=== PATIENT | male | born 1970 | race African-American/Black ===

== ENCOUNTER 2021-03-01 05:05 | Day surgery (SDC) | payer OTHER ==
[~2021-03-01] VITALS: Ht 175.3 cm; Wt 86.4 kg
[2021-03-01] MEDS ORDERED: ZOCOR20 MG PO (06:34)
[2021-03-01] MEDS ORDERED: METOPROLOL TART50 MG PO (06:34)
[2021-03-01] MEDS ORDERED: PAMELOR75 MG PO (06:34)
[2021-03-01 06:58] VITALS: Ht 175.3 cm; Wt 86.4 kg
[2021-03-01 07:04] LABS: ALBUMIN 3.9 g/dL (3.4-5.0); ALKALINE PHOSPHATASE 102 U/L (30-120); ALT (SGPT) 32 U/L (10-68); BILIRUBIN - TOTAL 0.43 mg/dL (0.2-1.3); CALC OSMOLALITY 277 mosm/kg (275-300); CALCIUM 8.9 mg/dL (8.5-10.1); CARBON DIOXIDE 26.9 mmol/L (21.0-32.0); CHLORIDE - SERUM 105 mmol/L (98-107); GLUCOSE 106 mg/dL (74-106); PROTEIN - SERUM 7.4 g/dL (6.4-8.2); SODIUM 140 mmol/L (136-145); UREA NITROGEN 9 mg/dL (7-18); eGFR NON AFRICAN AMERICAN 84 mL/min (90-120)
[2021-03-01 07:11] LABS: BASOPHILS 0.2 % (0-2); EOSINOPHILS 1.1 % (0-7); HEMATOCRIT 41.9 % (42.0-54.0); HEMOGLOBIN 13.3 g/dL (13.5-17.5); IMMATURE GRANULOCYTES 0.4 % (0-5); LYMPHOCYTE ABS# 1.72 10x3/uL (1.32-3.57); LYMPHOCYTES 37.1 % (15-50); MCH 27.6 pg (26.0-34.0); MCHC 31.7 g/dL (31.0-37.0); MCV 86.9 fL (80.0-100.0); MEAN PLATELET VOLUME 12.9 fL (7.4-10.4); MONOCYTES 9.1 % (2-11); NEUTROPHIL ABS# 2.42 10x3/uL (1.78-5.38); NEUTROPHILS 52.1 % (40-80); PLATELET COUNT 217 10x3/uL (130-400); RBC 4.82 10x6/uL (4.20-6.10); RDW 12.2 % (11.5-14.5); WBC 4.6 10x3/uL (4.8-10.8)
--- NOTE | 2021-03-01 10:14 | NUR ---
1000 IV DC'ED WITH CATH INTACT & 525ML LTC. DRESSING. Alen STEELE R.N. 1009 UP TO BATHROOM. VOIDED. DRESSED. PROVIDED WITH D/C INFORMATION INCLUDING: MED REC., SHEET LISTING NSAIDS TO HOLD, [facility] POST ENDOSCOPY D/C INSTRUCTIONS. COPIES OF LAB, EKG, H&P, & POST OP NOTE SENT TO [facility]. RELEASED FROM UNIT VIA WHEELCHAIR BY [facility] GUARDS X'S 2. TO [facility] FACILITY PER [facility] VAN/GUARDS. Alen STEELE R.N.
--- NOTE | 2021-03-03 16:40 | OP ---
PATIENT NAME: REINA MORRIS MEDICAL RECORD: [id number] :68 LOCATION:D.OPS ADMISSION DATE: SURGEON: DENNIS JUSTIN MD DATE OF OPERATION: 03/01/2021 PREOPERATIVE DIAGNOSIS: Foreign body sensation at the level of the cricopharyngeus. POSTOPERATIVE DIAGNOSES: 1. Foreign body sensation at the level of the cricopharyngeus with no anatomic abnormality noted in that area. 2. Moderately sized hiatal hernia. 3. LA grade II distal esophagitis. 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 5. Normal stomach otherwise. 6. Normal duodenum otherwise. PROCEDURES: 1. Esophagogastroduodenoscopy with antral and distal esophageal biopsies. 2. Esophageal dilation with a iouhdyr-sxy-dfwianrh balloon to 60-Surinamese. SURGEON: Dennis Justin MD. EXPERIMENTAL MACHINING LAB MANAGER: None. BLOOD LOSS: Minimal. ANESTHESIA: IV sedation. COMPLICATIONS: None. The risks, possible complications, and alternatives of the procedure were explained to the patient. He elects to proceed. ENDOSCOPIC COURSE: The patient was conveyed to the endoscopy suite electively on 03/01/2021. IV sedation was induced by the anesthesia staff. A bite block was inserted. A gastroscope was inserted into the mouth. It was advanced easily into the hypopharynx. The esophagus was easily intubated as were the stomach and duodenum. Upon withdrawal, retroflexed and angulus views were obtained. Antral biopsies were obtained to rule out H. pylori. I then withdrew into the cardia of the stomach. I advanced it through the catheter balloon. I then sequentially dilated the entire length of the esophagus to 60-Surinamese. The gastroscope and balloon were then withdrawn. The gastroscope was then readvanced. There had been no false passage or perforation. Multiple random distal esophageal biopsies were obtained at the Z-line to rule out House esophagus. The endoscope was then withdrawn under direct vision. I will see the patient on an as-needed basis. There is no need for the patient to follow up with me unless he develops a complication related to this operative procedure. If I need to see him in followup, we could do a telehealth visit or I could see him on one of my GI clinic days out at the intermediate. If the biopsies do confirm House esophagus, he should undergo another surveillance upper endoscopy with biopsies in 1 year, which would be in 02/2022. TRANSINT:[id number] Voice Confirmation ID: [id number] DOCUMENT ID: [id number] OPERATIVE REPORT [id number] REINA MORRIS ROBERT MD at [facility] CC: [id number] DICTATION DATE: 03/01/21932 TRUST ADVISOR: 03/01/21 1003 [facility] 03/01/21 [place] [id number]
--- NOTE | 2021-03-03 16:40 | HP ---
PATIENT: REINA MORRIS MEDICAL RECORD: [id number] ACCOUNT: [id number] LOCATION:[facility] : 68 ADMISSION DATE: 03/01/21 PCP: No PCP HISTORY AND PHYSICAL EXAMINATION CHIEF COMPLAINT: Foreign body sensation. HISTORY OF PRESENT ILLNESS: The patient does have reflux, but it is pretty well controlled on Prilosec. He is an inmate at the [facility]. This is the first time this has ever happened before. He states that food does not necessarily get hung up in his esophagus, but he has a foreign body sensation at the level of the cricopharyngeus. No nighttime reflux or volume reflux. He has been treated with Prilosec. It has helped with his reflux, but not with his foreign body sensation. No hematemesis. No blood in his stools. I am going to plan for EGD with esophageal dilation. The risks, possible complications, and alternatives of the procedure were explained to the patient. He elects to proceed. PAST MEDICAL AND SURGICAL HISTORY: Hyperlipidemia, hypertension. REVIEW OF SYSTEMS: Negative for CVA or seizures. SOCIAL HISTORY: Nonsmoker. MEDICATIONS AT THE SHELTER: Reviewed. ALLERGIES: No known drug allergies. PHYSICAL EXAMINATION: GENERAL: The patient does not appear acutely ill. He does not appear chronically ill. VITAL SIGNS: Reviewed. EARS: External ears appear normal. EYES: Extraocular movements are intact. NECK: Trachea is midline. CHEST: No intercostal retractions. PULMONARY: Nonlabored. No stridor. IMPRESSION: Foreign body sensation in the esophagus. PLAN: Will be EGD with esophageal dilation. TRANSINT:[id number] Voice Confirmation ID: [id number] DOCUMENT ID: [id number] cc: Hortensia Eden APN, unknown. Sent to [facility]. HISTORY AND PHYSICAL [id number] ARTUROREINA ANNALEE JUSTIN MD at 1640 CC: [id number] DICTATION DATE: 03/01/21 0856 E BUSINESS PROJECT MANAGER: 03/01/[address] [facility] 03/01/21 [place] [id number] [place] [address]
== END 2021-03-01 10:09 ==
LOC: D.OPS 05:05
PROVIDERS: Anesthesiology; ATTEND Surgery
DX: R13.10 Dysphagia, unspecified (principal); K21.9 Gastro-esophageal reflux disease without esophagitis; E78.5 Hyperlipidemia, unspecified; I10 Essential (primary) hypertension; K44.9 Diaphragmatic hernia without obstruction or gangrene; K20.80 Other esophagitis without bleeding